=== PATIENT | male | born 2000 | race Two or more races ===

== ENCOUNTER 2020-09-17 14:05 | Emergency (ER) | payer MEDICAID, OTHER ==
[~2020-09-17] VITALS: Ht 180.3 cm; Wt 154.6 kg
[~2020-09-17 14:05] MED LIST: ANTI14DR2 RIGHT EAR; IBUP-814 PO; LIDO20SO PO
[2020-09-17 14:18] VITALS: BP 158/97
== END 2020-09-17 15:27 | disposition home or self-care (01) ==
LOC: ER 14:07
DX: J02.9 Acute pharyngitis, unspecified (principal); R06.02 Shortness of breath; R50.9 Fever, unspecified; Z20.828 Contact with and (suspected) exposure to other viral communicable diseases; Z90.89 Acquired absence of other organs; Z79.899 Other long term (current) drug therapy
CPT/HCPCS: 36415; 87081; 87635; 87880; 99283

== ENCOUNTER 2023-04-12 12:59 | Emergency (ER) | payer OTHER ==
[~2023-04-12] VITALS: Ht 182.9 cm; Wt 145.4 kg
[2023-04-12 14:41] VITALS: BP 149/99
[2023-04-12 14:42] LABS: BASOPHILS % (AUTO) 0.5 % (0-1); EOSINOPHILS # (AUTO) 0.1 X10'3 (0-0.9); EOSINOPHILS % (AUTO) 1.5 % (0-6); HEMATOCRIT 44.3 % (42.0-52.0); HEMOGLOBIN 14.6 g/dl (14.0-17.9); LYMPHOCYTES # (AUTO) 1.6 X10'3 (1.1-4.8); LYMPHOCYTES % (AUTO) 16.4 % (21-51); MEAN CORPUSCULAR HEMOGLOBIN 25.6 PG (27.0-31.0); MEAN CORPUSCULAR HGB CONC 32.9 g/dL (33.0-36.5); MEAN CORPUSCULAR VOLUME 77.9 FL (78-98); MEAN PLATELET VOLUME 9.1 FL (7.4-10.4); MONOCYTES # (AUTO) 0.8 X10'3 (0-0.9); MONOCYTES % (AUTO) 8.6 % (2-12); NEUTROPHILS # (AUTO) 7.2 X10'3 (1.8-7.7); PLATELET COUNT 163 X10'3 (140-440); RED BLOOD COUNT 5.69 X10'6 (4.70-6.10); RED CELL DISTRIBUTION WIDTH 14.6 % (11.5-14.5); WHITE BLOOD COUNT 9.9 X10'3 (4.5-11.0)
[2023-04-12 15:03] LABS: ALANINE AMINOTRANSFERASE 35 U/L (12-78); ALBUMIN 3.8 G/DL (3.4-5.0); ALKALINE PHOSPHATASE 91 IU/L (46-116); ANION GAP 8 (8-16); ASPARTATE AMINO TRANSFERASE 20 U/L (10-37); BILIRUBIN,TOTAL 0.6 MG/DL (0.1-1.0); BLOOD UREA NITROGEN 15 MG/DL (7-18); BUN/CREATININE RATIO 15.2 (10.0-20.0); CALCIUM 8.7 MG/DL (8.5-10.1); CHLORIDE 105 MMOL/L (99-107); CREATININE 0.99 MG/DL (0.60-1.10); GLUCOSE 90 MG/DL (70-104); POTASSIUM 3.7 MMOL/L (3.5-5.1); SODIUM 140 MMOL/L (135-145); TOTAL CARBON DIOXIDE 26.8 MMOL/L (24-32); TOTAL PROTEIN 7.6 G/DL (6.4-8.2); eGFR > 90 ML/MIN
--- NOTE | 2023-04-12 15:04 | NUR ---
TC TO [facility] FOR ADVICE. PATIENT SHOULD BE PLACED ON [employer] TAPING WITH SERIAL EKG READINGS EVERY 4-6 HOURS. IF QT INTERVAL GREATER THAN 500 MILLISECONDS, GIVEN 2 GM MAGNESIUM. WATCH ELECTROLYTES. WATCH FOR SEIZURES AND AGITATION. SEIZURE PRECAUTIONS. TYLENOL AND ASA LEVELS. PATIENT SHOULD BE OBSERVED FOR AT LEAST 12 HOURS.
[2023-04-12 15:12] LABS: ACETAMINOPHEN < 2.0 UG/ML (10-30); ETHANOL < 0.010 GM/DL (0.0-0.010)
[2023-04-12 15:42] LABS: CLARITY,URINE CLEAR (Clear); COLOR,URINE YELLOW (Yellow); GLUCOSE, URINE NEGATIVE (Neg); KETONES,URINE TRACE mg/dl (Neg); LEUKOCYTE ESTERASE ,URINE NEGATIVE (Neg); NITRITES, URINE NEGATIVE (Neg); OCCULT BLOOD,URINE TRACE-INTACT (Neg); PROTEIN,URINE NEGATIVE (Neg); UROBILINOGEN,URINE 0.2 E.U/dL (0.2-1.0)
[2023-04-12 15:45] LABS: UA COLLECTION TYPE CLN CATCH MIDSTREAM
[2023-04-12 15:51] LABS: MUCUS STRANDS FEW /LPF (Neg); SQUAMOUS EPITHELIAL CELL,UR MODERATE /LPF (FEW)
[2023-04-12 15:53] LABS: BACTERIA,URINE FEW /HPF (Neg); RBC,URINE 0-2 /HPF (0-2); WBC,URINE 0-4 /HPF (0-4)
[2023-04-12 16:18] LABS: URINE AMPHETAMINE SCREEN NEGATIVE (Neg); URINE BARBITUATE SCREEN NEGATIVE (Neg); URINE BENZODIAZEPINES SCREEN NEGATIVE (Neg); URINE CANNABINOID SCREEN NEGATIVE (Neg); URINE COCAINE SCREEN NEGATIVE (Neg); URINE METHADONE SCREEN NEGATIVE (Neg); URINE OPIATE SCREEN NEGATIVE (Neg); URINE PHENCYCLIDINE SCREEN NEGATIVE (Neg)
--- NOTE | 2023-04-13 00:07 | NUR ---
Took handful of Lexapro. Patient denies suicidal ideation at this time. Takes no meds except Lexapro. No medical HX. Report from [facility].
--- NOTE | 2023-04-13 00:49 | NUR ---
Patient denies suicidal ideation at this time. States he felt regret right after he took the medication. No distress observed at this time. Continue to monitor.
--- NOTE | 2023-04-13 01:37 | NUR ---
Patient sleeping on his left side. No distress observed. Continue to monitor.
--- NOTE | 2023-04-13 03:13 | NUR ---
Patient sleeping prone. No distress observed. Continue to monitor.
--- NOTE | 2023-04-13 06:30 | NUR ---
Pt is lying in bed, he appears to be sleeping.
--- NOTE | 2023-04-13 06:47 | NUR ---
lorenzo sent pt packet to [facility]
--- NOTE | 2023-04-13 07:50 | NUR ---
Both father and mother have called asking about the patient, informed that pt is sleeping and asked them to call back later.
--- NOTE | 2023-04-13 08:30 | NUR ---
Pt is awake. He reports that it is okay to share information with his parents. Pt is depressed. He is a and sees a therapist weekly at the [place] where he was prescribed the Lexapro. Pt states that it was "a rash decision" to overdose on the Lexapro. Pt stated that he felt like "the world came crashing down" on him. Pt reports feeling lonely and lacking personal connection with others.
--- NOTE | 2023-04-13 10:13 | NUR ---
Kristie from poison control called and said that they are closing the case. Pt has been stable.
--- NOTE | 2023-04-13 11:58 | NUR ---
Pt is being discharged.
== END 2023-04-13 12:12 | disposition home or self-care (01) ==
LOC: ER 13:00
DX: T43.222A Poisoning by selective serotonin reuptake inhibitors, intentional self-harm, initial encounter (principal); Z20.822 Contact with and (suspected) exposure to COVID-19; R45.851 Suicidal ideations; Z98.890 Other specified postprocedural states; Y92.89 Other specified places as the place of occurrence of the external cause
CPT/HCPCS: 36415; 80053; 80305; 80320; 80329; 81001; 84443; 85025; 87811; 93005; 99285